=== PATIENT | female | born 1980 | race American Indian/Alaskan Native ===

== ENCOUNTER 2018-08-07 11:04 | Emergency (ER) | payer SELFPAY ==
[2018-08-07] MEDS ORDERED: NACL 0.9% 1000 ML 1,000 ML IV ONE (11:27)
[2018-08-07 11:53] LABS: Basophils % (Auto) 0.5 % (0.0-1.8); Eosinophils % (Auto) 0.8 % (0.0-4.3); Hematocrit 35.4 % (30.3-42.9); Hemoglobin 11.5 gm/dl (10.1-14.3); Lymphocytes # (Auto) 2.3 K/mm3 (1.2-5.4); Lymphocytes % (Auto) 45.8 % (13.4-35.0); Mean Corpuscular HGB Conc 33 % (30-34); Mean Corpuscular Volume 84 fl (79-97); Monocytes # (Auto) 0.4 K/mm3 (0.0-0.8); Monocytes % (Auto) 7.1 % (0.0-7.3); Platelet Count 291 K/mm3 (140-440); Red Blood Count 4.23 M/mm3 (3.65-5.03); Red Cell Distribution Width 15.3 % (13.2-15.2)
[2018-08-07 12:29] LABS: Alanine Aminotransferase 9 units/L (7-56); Albumin 4.5 g/dL (3.9-5); BUN/Creatinine Ratio 7; Blood Urea Nitrogen 5 mg/dL (7-17); Calcium 9.1 mg/dL (8.4-10.2); Hemolysis Index 9
[2018-08-07] MEDS ORDERED: NORCO 10/325 PO ONE (12:41)
[2018-08-07 13:14] LABS: Bilirubin,Urine NEG (Negative); Blood,Urine SM (Negative); Color,Urine Straw (Yellow); Mucus,Urine FEW /HPF; Protein,Urine <15 mg/dL mg/dL (Negative); RBC,Urine < 1.0 /HPF (0.0-6.0); Urobilinogen,Urine < 2.0 mg/dL (<2.0); WBC,Urine < 1.0 /HPF (0.0-6.0)
[2018-08-07 13:22] LABS: HCG Qualitative,Urine Negative (Negative)
--- NOTE | 2018-08-07 14:46 | Cat Scan Report ---
CT ABDOMEN PELVIS WITHOUT CONTRAST: HISTORY: Flank and abdominal pain. COMPARISON: none. TECHNIQUE: Helical CT in 1.25mm intervals without IV contrast. Sagittal and coronal reconstructions. FINDINGS: Lung bases: Normal. Liver: Normal. Biliary system: Normal. Pancreas: Normal. Spleen: Normal. Kidneys/ureters/bladder: Multiple tiny bilateral calyceal stones are identified. The kidneys are unremarkable otherwise. No evidence for cystic disease, obvious mass or hydronephrosis. The ureters and bladder are unremarkable. Adrenal glands: Normal. Aorta: Normal. Intestines: Within normal limits given no oral contrast was administered. Appendix: Not confidently identified, correlate with surgical history. Pelvic viscera: The uterus is mildly enlarged with suggestion of small fibroids. A 2 cm left ovarian cyst is identified. Ascites: None. Adenopathy: None. Musculoskeletal: Normal. IMPRESSION: Tiny bilateral renal calyceal stones. No hydronephrosis. 2 cm left ovarian cyst. Assumed appendectomy.
--- NOTE | 2018-08-07 14:55 | Emergency Department Report ---
ED Abdominal Pain HPI - General Chief Complaint: Abdominal Pain Stated Complaint: BACK PAIN Time Seen by Provider: 08/07/18 12:30 Source: patient Mode of arrival: Ambulatory Limitations: No Limitations - History of Present Illness Initial Comments: This is a 37-year-old female nontoxic, well nourished in appearance, no acute signs of distress presents to the ED with c/o of nausea and vomiting and left flank/abdominal pain 2 days. Patient describes vomiting as food content and yellow gastric acid. Patient describes left lower abdominal pain as cramping and aching with level of 3/10. Patient denies chest pain, short of breath, fever, chills, headache, stiff neck, numbness or tingling. Patient denies any diarrhea or constipation. Patient denies any recent travels. Patient denies any allergies. HX of appendectomy. MD Complaint: abdominal pain, flank pain -: days(s) (2) Location: LLQ, L flank Radiation: none Migration to: no migration Severity: mild Severity scale (0 -10): 3 Quality: cramping, aching Consistency: constant Improves With: nothing Worsens With: nothing Associated Symptoms: nausea, vomiting. denies: diarrhea, fever, chills, constipation, dysuria, hematemesis, hematochezia, melena, hematuria, anorexia, syncope - Related Data Previous Rx's Medication Instructions Recorded Last Taken Type Butalb/Acetamin/Caff 50-325-40 1 tab PO Q6HR PRN #30 tab 04/03/18 Unknown Rx [Fioricet] Carbamide Peroxide 6.5% [Ear Wax 1 - 2 drops OT BID #1 bottle 04/03/18 Unknown Rx Drops] Ondansetron [Zofran Odt] 4 mg PO TID #20 tab.rapdis 04/03/18 Unknown Rx Acetaminophen/Codeine [Tylenol 1 tab PO Q6H PRN #12 tab 08/07/18 Unknown Rx /Codeine # 3 tab] Ondansetron [Zofran Odt] 4 mg PO Q8HR PRN #20 tab.rapdis 08/07/18 Unknown Rx Allergies Allergy/AdvReac Type Severity Reaction Status Date / Time No Known Allergies Allergy Verified 08/07/18 11:06 ED Review of Systems ROS: Stated complaint: BACK PAIN Other details as noted in HPI Constitutional: denies: chills, fever Eyes: denies: eye pain, eye discharge, vision change ENT: denies: ear pain, throat pain Respiratory: denies: cough, shortness of breath, wheezing Cardiovascular: denies: chest pain, palpitations Endocrine: no symptoms reported Gastrointestinal: nausea, vomiting, other (pelvic/flank). denies: abdominal pain, diarrhea Genitourinary: denies: urgency, dysuria, discharge Musculoskeletal: denies: back pain, joint swelling, arthralgia Skin: denies: rash, lesions Neurological: denies: headache, weakness, paresthesias Psychiatric: denies: anxiety, depression Hematological/Lymphatic: denies: easy bleeding, easy bruising ED Past Medical Hx - Past Medical History Previous Medical History?: Yes - Surgical History Past Surgical History?: Yes Hx Appendectomy: Yes Additional Surgical History: tubal ligation & reversal - Social History Smoking Status: Never Smoker Substance Use Type: None - Medications Home Medications: Home Medications Medication Instructions Recorded Confirmed Last Taken Type Butalb/Acetamin/Caff 50-325-40 1 tab PO Q6HR PRN #30 tab 04/03/18 Unknown Rx [Fioricet] Carbamide Peroxide 6.5% [Ear Wax 1 - 2 drops OT BID #1 bottle 04/03/18 Unknown Rx Drops] Ondansetron [Zofran Odt] 4 mg PO TID #20 tab.rapdis 04/03/18 Unknown Rx Acetaminophen/Codeine [Tylenol 1 tab PO Q6H PRN #12 tab 08/07/18 Unknown Rx /Codeine # 3 tab] Ondansetron [Zofran Odt] 4 mg PO Q8HR PRN #20 tab.rapdis 08/07/18 Unknown Rx ED Physical Exam - General Limitations: No Limitations General appearance: alert, in no apparent distress - Head Head exam: Present: atraumatic, normocephalic - Eye Eye exam: Present: normal appearance - Neck Neck exam: Present: normal inspection, full ROM. Absent: tenderness, meningismus, lymphadenopathy - Respiratory Respiratory exam: Present: normal lung sounds bilaterally. Absent: respiratory distress, wheezes, rales, rhonchi, stridor, chest wall tenderness, accessory muscle use, decreased breath sounds, prolonged expiratory - Cardiovascular Cardiovascular Exam: Present: regular rate, normal rhythm, normal heart sounds. Absent: bradycardia, tachycardia, irregular rhythm, systolic murmur, diastolic murmur, rubs, gallop - GI/Abdominal GI/Abdominal exam: Present: soft, normal bowel sounds. Absent: distended, tenderness, guarding, rebound, rigid, diminished bowel sounds - Extremities Exam Extremities exam: Present: normal inspection, full ROM - Back Exam Back exam: Present: normal inspection, full ROM. Absent: tenderness, CVA tenderness (R), CVA tenderness (L), muscle spasm, paraspinal tenderness, vertebral tenderness, rash noted - Neurological Exam Neurological exam: Present: alert, oriented X3, normal gait - Psychiatric Psychiatric exam: Present: normal affect, normal mood - Skin Skin exam: Present: warm, dry, intact, normal color. Absent: rash ED Course Vital Signs 08/07/18 08/07/18 11:25 11:50 Temperature 97.9 F Pulse Rate 77 Respiratory 16 17 Rate Blood Pressure 117/74 O2 Sat by Pulse 100 Oximetry - Reevaluation(s) Reevaluation #1: 08/07/18 15:11 Patient is speaking in full sentences with no signs of distress noted. ED Medical Decision Making - Lab Data Result diagrams: 08/07/18 11:31 08/07/18 11:31 - Medical Decision Making This is a 37-year-old female that presents with left ovrain cyst and kidney s tone. Patient is stable and was examined by me. There is no abdominal tenderness. Labs obtained. UA obtained. CT of abdomen obtained and dictated by the radiologist. Patient is notified of the report with no questions noted by the patient. Vital signs are stable prior to discharge. Patient received medical treatment in the ED which patient stated symptoms has resovled and subsided. Was instructed note to operate any machinery due to possible drowsiness and stated someone will drive the patient home. A by mouth challenge has been obtained and patient tolerated well with no nausea vomiting. Patient was also instructed to Follow-up with a primary care doctor in 3-5 days or if symptoms worsen and continue return to emergency room as soon as possible. At time of discharge, the patient does not seem toxic or ill in appearance. No acute signs of distress noted. Patient agrees to discharge treatment plan of care. No further questions noted by the patient. Critical care attestation.: If time is entered above; I have spent that time in minutes in the direct care of this critically ill patient, excluding procedure time. ED Disposition Clinical Impression: Kidney stone, Left ovarian cyst Disposition: DC- TO HOME OR SELFCARE Is pt being admited?: No Does the pt Need Aspirin: No Condition: Stable Instructions: Acetaminophen/Codeine (By mouth), Abdominal Pain (ED) Additional Instructions: Follow-up with a primary care/CERAMIC WORKER doctor in 3-5 days or if symptoms worsen and continue return to emergency room as soon as possible. Do not operate any machinery while taking Tylenol with codeine as this may cause drowsiness. Prescriptions: Acetaminophen/Codeine [Tylenol /Codeine # 3 tab] 1 tab PO Q6H PRN #12 tab PRN Reason: Pain , Severe (7-10) Ondansetron [Zofran Odt] 4 mg PO Q8HR PRN #20 tab.rapdis PRN Reason: Nausea Referrals: [facility] MD RIKKI [Primary Care Provider] - 3-5 Days PRIMARY CAREMD [Referring] - 3-5 Days OBED PARDO MD [Staff Physician] - 3-5 Days SHANTE SIFUENTES MD [Staff Physician] - 3-5 Days [facility] [Provider Group] - 3-5 Days Forms: Work/School Release Form(ED)
[2018-08-07 15:36] VITALS: BP 122/74
== END 2018-08-07 15:34 | disposition home or self-care (01) ==
LOC: ED 11:04
DX: N20.0 Calculus of kidney (principal); N83.202 Unspecified ovarian cyst, left side; Z90.89 Acquired absence of other organs; Z98.51 Tubal ligation status
CPT/HCPCS: 36415; 74176; 80053; 81001; 81025; 83690; 85025

== ENCOUNTER 2018-08-27 05:41 | Emergency (ER) | payer SELFPAY ==
[2018-08-27 05:57] VITALS: BP 118/83
--- NOTE | 2018-08-27 06:33 | Emergency Department Report ---
[facility] Chief Complaint: Eye Problems Stated Complaint: R EYE PAIN/SWELLING/IRRITATION Time Seen by Provider: 08/27/18 06:27 Duration: 1 Day Side: Right Severity: mild Symptoms: Yes Eye Itching, Yes Eye Redness, Yes Mucous Drainage, No Eye Pain, No Purulent Drainage, No Blurred Vision, No Preceding URI, No H/O Allergic Rhinitis, No Contact Lens Use, No Trauma, No Fever, No Headache Other History: This is a 37-year-old -[place] female who presents with swelling in, itching, and pain to the right eye. Patient states symptoms started last night initially with itching. States she woke up this morning and there was mild swelling to the lower eyelid with mucus discharge. Patient states she wears glasses for reading. She denies visual changes, grinding sen sation, fever, cough, or recent trauma. ED Review of Systems ROS: Stated complaint: R EYE PAIN/SWELLING/IRRITATION Other details as noted in HPI Constitutional: denies: chills, fever Eyes: eye pain (right), eye discharge (right). denies: vision change ENT: denies: ear pain, throat pain Respiratory: denies: cough, shortness of breath, wheezing Cardiovascular: denies: chest pain, palpitations Gastrointestinal: denies: abdominal pain, nausea, diarrhea Skin: denies: rash, lesions Neurological: denies: headache, weakness, paresthesias Psychiatric: denies: anxiety, depression ED Past Medical Hx - Past Medical History Previous Medical History?: No - Surgical History Past Surgical History?: Yes Hx Appendectomy: Yes Additional Surgical History: tubal ligation & reversal - Social History Smoking Status: Never Smoker Substance Use Type: None - Medications Home Medications: Home Medications Medication Instructions Recorded Confirmed Last Taken Type Butalb/Acetamin/Caff 50-325-40 1 tab PO Q6HR PRN #30 tab 04/03/18 Unknown Rx [Fioricet] Carbamide Peroxide 6.5% [Ear Wax 1 - 2 drops OT BID #1 bottle 04/03/18 Unknown Rx Drops] Ondansetron [Zofran Odt] 4 mg PO TID #20 tab.rapdis 04/03/18 Unknown Rx Acetaminophen/Codeine [Tylenol 1 tab PO Q6H PRN #12 tab 08/07/18 Unknown Rx /Codeine # 3 tab] Ondansetron [Zofran Odt] 4 mg PO Q8HR PRN #20 tab.rapdis 08/07/18 Unknown Rx Erythromycin [Erythromycin Ophth 10 applic OP QID 7 Days #1 tube 08/27/18 Unknown Rx Oint] [facility] Exam - Exam General: Vital signs noted. No distress. Alert and acting appropriately. Eye Exam: Right Injection, Right Chemosis, Right Mucous Discharge, Both EOMI, Neither Abnormal Pupil, Neither Eye Foreign Body, Neither Lid Foreign Body, Neither Purulent Discharge, Neither Fluorescein Uptake, Neither Fluorescein Uptake (slit lamp), Neither Cell/Flare (slit lamp), Neither Corneal Edema, Neither Photophobia HEENT: No Nasal Congestion, No Pharyngeal Erythema Remainder of HEENT: Normal Lungs: Yes Clear Lung Sounds, Yes Good Air Exchange, No Wheezes, No Stridor, No Cough, No Nasal Flaring, No Retractions, No Use of Accessory Muscles ED Course Vital Signs 08/27/18 05:44 Temperature 98.3 F Pulse Rate 78 Respiratory 18 Rate Blood Pressure 118/83 O2 Sat by Pulse 100 Oximetry ED Medical Decision Making - Medical Decision Making This is a 37-year-old female that presents with right pink eye with mucous discharge and itching for 1 day. Patient is stable and was examined by me. Vitals normal. Physical assessment susceptible of conjunctivitis on the right. S tart erythromycin. Instructed to apply cool compress to improve swelling. Discussed plan with patient and she agreed with plan. Discharged home in stable condition. Follow up with PCP in 24-72 hours. Critical care attestation.: If time is entered above; I have spent that time in minutes in the direct care of this critically ill patient, excluding procedure time. ED Disposition Clinical Impression: Itch of right eye Conjunctivitis Qualifiers: Conjunctivitis type: acute Acute conjunctivitis type: bacterial Laterality: right Qualified Code(s): H10.31 - Unspecified acute conjunctivitis, right eye Disposition: DC-01 TO HOME OR SELFCARE Is pt being admited?: No Does the pt Need Aspirin: No Condition: Stable Instructions: Conjunctivitis (ED) Additional Instructions: Pinkeye is very contagious so please wash hands frequently. Don't share any towels or bedding to prevent spread of infection. Follow up with primary care doctor in 24-72 hours. Use cool compress to each eye to decrease swelling. Avoid rubbing or touching eyes, because rubbing eyes can cause worsening symptoms. Take medication as prescribed. Return to ER if swelling don't improve or difficulty breathing after 2 days of medication. Prescriptions: Erythromycin [Erythromycin Ophth Oint] 10 applic OP QID 7 Days #1 tube Referrals: HARRIS MAHER MD [Primary Care Provider] - 3-5 Days ARGELIA ALARCON MD [Staff Physician] - 3-5 Days [facility] [Provider Group] - 3-5 Days Forms: Work/School Release Form(ED), Accompanied Note Time of Disposition: 06:38
== END 2018-08-27 06:55 | disposition home or self-care (01) ==
LOC: ED 05:41
DX: H10.31 Unspecified acute conjunctivitis, right eye (principal)
CPT/HCPCS: 99282

== ENCOUNTER 2018-11-23 19:03 | Emergency (ER) | payer SELFPAY ==
[2018-11-23] MEDS ORDERED: BENADRYL IV ONE (19:07)
[2018-11-23] MEDS ORDERED: PEPCID IV ONE (19:07)
[2018-11-23] MEDS ORDERED: ADRENALINE P/F SUB-Q ONE (19:07)
[2018-11-23] MEDS ORDERED: NACL 0.9% 1000 ML 1,000 ML IV ONE (19:07)
[2018-11-23] MEDS ORDERED: SOLU-Medrol IV ONE (19:07)
--- NOTE | 2018-11-23 19:11 | Emergency Department Report ---
ED Allergic Reaction HPI - General Stated complaint: ALLERGIC REACTION Time Seen by Provider: 11/23/18 19:06 Source: patient Mode of arrival: Stretcher Limitations: No Limitations - History of Present Illness Initial Comments: Patient is a 38-year-old female that presents emergency room with complaints of allergic reaction. Patient states she is having facial swelling and hives on her face. Patient states she ate shrimp and didn't know she was allergic to. Patient is complaining of difficulty in breathing. Patient is complaining of a sensation in her throat was closing. Patient denies chest pain. Patient denies fever chills. Patient denies nausea vomiting. Patient states her symptoms are worsening. MD Complaint: allergic reaction, hives, facial swelling -: Sudden Exposure: food Symptoms: rash, itching, facial swelling, lip swelling, difficulty swallowing, difficulty breathing. denies: hoarseness, syncopy, dizziness, nausea, vomiting, abdominal pain Severity: severe Treatment Prior to Arrival: none Previous Allergy History: none - Related Data Previous Rx's Medication Instructions Recorded Last Taken Type Butalb/Acetamin/Caff 50-325-40 1 tab PO Q6HR PRN #30 tab 04/03/18 Unknown Rx [Fioricet] Carbamide Peroxide 6.5% [Ear Wax 1 - 2 drops OT BID #1 bottle 04/03/18 Unknown Rx Drops] Ondansetron [Zofran Odt] 4 mg PO TID #20 tab.rapdis 04/03/18 Unknown Rx Acetaminophen/Codeine [Tylenol 1 tab PO Q6H PRN #12 tab 08/07/18 Unknown Rx /Codeine # 3 tab] Ondansetron [Zofran Odt] 4 mg PO Q8HR PRN #20 tab.rapdis 08/07/18 Unknown Rx Erythromycin [Erythromycin Ophth 10 applic OP QID 7 Days #1 tube 08/27/18 Unkno wn Rx Oint] EPINEPHrine [Epipen 2-Bruno] 0.3 mg IJ ONCE PRN #1 auto.injct 11/23/18 Unknown Rx Famotidine [Pepcid] 40 mg PO QHS 6 Days #6 tablet 11/23/18 Unknown Rx methylPREDNISolone [Medrol 4MG 4 mg PO DAILY 6 Days #1 tab.ds.pk 11/23/18 Unknown Rx DOSEPAK (21 tabs)] Allergies Allergy/AdvReac Type Severity Reaction Status Date / Time No Known Allergies Allergy Verified 08/07/18 11:06 ED Review of Systems ROS: Stated complaint: ALLERGIC REACTION Other details as noted in HPI Constitutional: denies: chills, fever Eyes: denies: eye pain, eye discharge, vision change ENT: denies: ear pain, throat pain Respiratory: shortness of breath. denies: cough, wheezing Cardiovascular: denies: chest pain, palpitations Endocrine: no symptoms reported Gastrointestinal: denies: abdominal pain, nausea, diarrhea Genitourinary: denies: urgency, dysuria, discharge Musculoskeletal: denies: back pain, joint swelling, arthralgia Skin: rash, pruritus. denies: lesions Neurological: denies: headache, weakness, paresthesias Psychiatric: denies: anxiety, depression Hematological/Lymphatic: denies: easy bleeding, easy bruising ED Past Medical Hx - Past Medical History Previous Medical History?: No - Surgical History Past Surgical History?: Yes Hx Appendectomy: Yes Additional Surgical History: tubal ligation & reversal - Family History Family history: no significant - Social History Smoking Status: Never Smoker Substance Use Type: None - Medications Home Medications: Home Medications Medication Instructions Recorded Confirmed Last Taken Type Butalb/Acetamin/Caff 50-325-40 1 tab PO Q6HR PRN #30 tab 04/03/18 Unknown Rx [Fioricet] Carbamide Peroxide 6.5% [Ear Wax 1 - 2 drops OT BID #1 bottle 04/03/18 Unknown Rx Drops] Ondansetron [Zofran Odt] 4 mg PO TID #20 tab.rapdis 04/03/18 Unknown Rx Acetaminophen/Codeine [Tylenol 1 tab PO Q6H PRN #12 tab 08/07/18 Unknown Rx /Codeine # 3 tab] Ondansetron [Zofran Odt] 4 mg PO Q8HR PRN #20 tab.rapdis 08/07/18 Unknown Rx Erythromycin [Erythromycin Ophth 10 applic OP QID 7 Days #1 tube 08/27/18 Unknown Rx Oint] EPINEPHrine [Epipen 2-Bruno] 0.3 mg IJ ONCE PRN #1 auto.injct 11/23/18 Unknown Rx Famotidine [Pepcid] 40 mg PO QHS 6 Days #6 tablet 11/23/18 Unknown Rx methylPREDNISolone [Medrol 4MG 4 mg PO DAILY 6 Days #1 tab.ds.pk 11/23/18 Unknown Rx DOSEPAK (21 tabs)] ED Physical Exam - General Limitations: No Limitations General appearance: alert, anxious, in distress - Head Head exam: Present: atraumatic, normocephalic - Eye Eye exam: Present: normal appearance, PERRL Pupils: Present: normal accommodation - ENT ENT exam: Present: mucous membranes moist, other (facial swelling and lip swelling. Hives on face noted) - Neck Neck exam: Present: normal inspection - Respiratory Respiratory exam: Present: normal lung sounds bilaterally, respiratory distress. Absent: wheezes, rales, rhonchi, stridor - Cardiovascular Cardiovascular Exam: Present: regular rate, normal rhythm. Absent: systolic murmur, diastolic murmur, rubs, gallop - GI/Abdominal GI/Abdominal exam: Present: soft, normal bowel sounds. Absent: distended, tenderness, guarding - Rectal Rectal exam: Present: deferred - Extremities Exam Extremities exam: Present: normal inspection - Back Exam Back exam: Present: normal inspection - Neurological Exam Neurological exam: Present: alert, oriented X3 - Psychiatric Psychiatric exam: Present: normal affect, normal mood - Skin Skin exam: Present: warm, dry, intact, rash, urticaria ED Course Vital Signs 11/23/18 11/23/18 11/23/18 19:20 20:01 21:00 Temperature 98.3 F Pulse Rate 89 80 76 Respiratory 16 13 9 L Rate Blood Pressure 167/108 131/90 127/81 Blood Pressure 167/108 [Left] O2 Sat by Pulse 100 100 98 Oximetry 11/23/18 22:23 Temperature 98.1 F Pulse Rate 90 Respiratory 16 Rate Blood Pressure Blood Pressure 116/71 [Left] O2 Sat by Pulse 99 Oximetry - Reevaluation(s) Reevaluation #1: Evaluation done. Patient complaint shortness of breath and difficulty breathing. Patient had facial swelling and hives on her face. Patient will be given multiple medications. 11/23/18 19:07 Reevaluation #2: Patient states she is feeling better. 11/23/18 19:15 Reevaluation #3: Patient states she is feeling back to normal. Patient's face is normal in all swelling and hives have resolved. 11/23/18 20:50 Reevaluation #4: Patient is comfortable. Patient denies shortness of breath. Patient denies chest pain. Patient denies difficulty breathing. Patient denies rash and itching. Patient is stable for discharge. I discussed all results with patient. Patient will be discharged home. Patient agrees with plan of care. I discussed discharge and follow-up instructions with the patient. Patient voiced understanding of instructions 11/23/18 21:53 ED Medical Decision Making - Lab Data Result diagrams: 11/23/18 19:18 11/23/18 19:18 - Radiology Data Radiology results: report reviewed interpreted by me: Negative chest x-ray - Medical Decision Making She is a 38-year-old female with a anaphylactic reaction and allergic reaction. Patient given epinephrine, Medrol, Pepcid and Benadryl. Patient responded well to therapy. Patient monitored for several hours and patient was discharged home. Patient improved immediately after this treatment. Patient's labs and chest x-ray unremarkable. Patient discharged home. - Differential Diagnosis anaphylaxis. Allergic reaction. Rash. . Critical Care Time: Yes Critical care attestation.: If time is entered above; I have spent that time in minutes in the direct care of this critically ill patient, excluding procedure time. Critical Care Time: 35 minutes ED Disposition Clinical Impression: SOB (shortness of breath), Hives Anaphylactic reaction Qualifiers: Encounter type: initial encounter Qualified Code(s): T78.2XXA - Anaphylactic shock, unspecified, initial encounter Disposition: TO HOME OR SELFCARE Is pt being admited?: No Does the pt Need Aspirin: No Condition: Stable Instructions: Food Allergy (ED), Anaphylaxis (ED), Allergies (ED) Additional Instructions: Patient to follow up with primary care in 2-3 days. Patient to follow up with yield analyst in 2-3 days. Patient to return to ER if condition worsens. Patient take meds as directed. Patient to avoid shrimp. Patient to keep a food log. Patient to return to ER if condition worsens. Patient to take Tylenol or ibuprofen when necessary for pain Prescriptions: Famotidine [Pepcid] 40 mg PO QHS 6 Days #6 tablet EPINEPHrine [Epipen 2-Bruno] 0.3 mg IJ ONCE PRN #1 auto.injct PRN Reason: Anaphylaxis methylPREDNISolone [Medrol 4MG DOSEPAK (21 tabs)] 4 mg PO DAILY 6 Days #1 tab.ds.pk Referrals: PRIMARY CARE, [Primary Care Provider] - 2-3 Days Forms: Work/School Release Form(ED) Time of Disposition: 21:57
[2018-11-23] MEDS ORDERED: ZOFRAN ONE (19:16)
[2018-11-23 19:29] LABS: Basophils % (Auto) 0.2 % (0.0-1.8); Eosinophils % (Auto) 0.5 % (0.0-4.3); Hematocrit 32.6 % (30.3-42.9); Hemoglobin 10.8 gm/dl (10.1-14.3); Lymphocytes # (Auto) 3.1 K/mm3 (1.2-5.4); Lymphocytes % (Auto) 47.6 % (13.4-35.0); Mean Corpuscular HGB Conc 33 % (30-34); Mean Corpuscular Volume 83 fl (79-97); Monocytes # (Auto) 0.7 K/mm3 (0.0-0.8); Monocytes % (Auto) 10.2 % (0.0-7.3); Platelet Count 275 K/mm3 (140-440)
[2018-11-23 20:04] LABS: Alanine Aminotransferase 8 units/L (7-56); Albumin 4.3 g/dL (3.9-5); BUN/Creatinine Ratio 15; Blood Urea Nitrogen 12 mg/dL (7-17); Calcium 8.9 mg/dL (8.4-10.2); Hemolysis Index 7
--- NOTE | 2018-11-23 20:29 | XRay Report ---
CHEST 1 VIEW, 11/23/2018 7:56 PM INDICATION: Allergic reaction COMPARISON: None FINDINGS: Support devices: None Heart: The cardiac silhouette is normal in size. Lungs/pleura: There is no focal airspace disease or significant pleural effusion. Additional findings: No additional acute findings. IMPRESSION: 1. No evidence of acute cardiopulmonary process. Signer Name: Linda Jeffries MD Signed: 11/23/2018 8:24 PM Workstation Name: [id number]
[2018-11-23 22:24] VITALS: BP 116/71
== END 2018-11-23 22:23 | disposition home or self-care (01) ==
LOC: ED 19:03
DX: T78.02XA Anaphylactic reaction due to shellfish (crustaceans), initial encounter (principal); L50.9 Urticaria, unspecified; R06.02 Shortness of breath; Z90.49 Acquired absence of other specified parts of digestive tract; Z98.51 Tubal ligation status; Z79.899 Other long term (current) drug therapy
CPT/HCPCS: 36415; 71045; 80053; 84703; 85025; 96372; 96374; 96375; 99291; J0171; J1200; J2405; J2930; J7030; 96361

== ENCOUNTER 2019-03-06 06:29 | Emergency (ER) | payer SELFPAY ==
--- NOTE | 2019-03-06 07:31 | Emergency Department Report ---
ED General Adult HPI - General Chief complaint: Extremity Injury, Lower Stated complaint: L LEG PAIN Time Seen by Provider: 03/06/19 07:19 Source: patient Mode of arrival: Ambulatory Limitations: No Limitations - History of Present Illness Initial comments: 38-year-old -Maldivian female patient complains of left heel pain greater than 6 months. She denies any injury to her foot. She states she was seen her primary care doctor for this initially and has had one steroid injection in the foot that helped with the pain for about one month. Patient states she is unsure of what was diagnosed with. She admits to standing for more than 8 hours a day at work. She reports the pain seems to be at its worse in the morning when she first wakes up and begins to ambulate. Pain also worsens after sitting for extended periods of time. She denies any fever, swelling, history of cancer. Aleve is no longer helping with the pain. -: Gradual, month(s) Location: left, lower extremity Radiation: non-radiation Severity scale (0 -10): 10 Quality: stabbing Consistency: intermittent Improves with: immobilization Worsens with: movement Associated Symptoms: denies other symptoms Treatments Prior to Arrival: NSAID - Related Data Previous Rx's Medication Instructions Recorded Last Taken Type Butalb/Acetamin/Caff 50-325-40 1 tab PO Q6HR PRN #30 tab 04/03/18 Unknown Rx [Fioricet] Carbamide Peroxide 6.5% [Ear Wax 1 - 2 drops OT BID #1 bottle 04/03/18 Unknown Rx Drops] Ondansetron [Zofran Odt] 4 mg PO TID #20 tab.rapdis 04/03/18 Unknown Rx Acetaminophen/Codeine [Tylenol 1 tab PO Q6H PRN #12 tab 08/07/18 Unknown Rx /Codeine # 3 tab] Ondansetron [Zofran Odt] 4 mg PO Q8HR PRN #20 tab.rapdis 08/07/18 Unknown Rx Erythromycin [Erythromycin Ophth 10 applic OP QID 7 Days #1 tube 08/27/18 Unknown Rx Oint] EPINEPHrine [Epipen 2-Bruno] 0.3 mg IJ ONCE PRN #1 auto.injct 11/23/18 Unknown Rx Famotidine [Pepcid] 40 mg PO QHS 6 Days #6 tablet 11/23/18 Unknown Rx methylPREDNISolone [Medrol 4MG 4 mg PO DAILY 6 Days #1 tab.ds.pk 11/23/18 Unknown Rx DOSEPAK (21 tabs)] Diclofenac 1% [Diclofenac 1% 100 gm TP QID 7 Days #100 03/06/19 Unknown Rx topical gel] gel..gram. Diclofenac Sodium 50 mg PO TID PRN #21 tablet.dr 03/06/19 Unknown Rx Prednisone [predniSONE 10 mg 10 mg PO .TAPER #1 tab.ds.pk 03/06/19 Unknown Rx (6-Day Pack, 21 Tabs)] Allergies Allergy/AdvReac Type Severity Reaction Status Date / Time No Known Allergies Allergy Verified 08/07/18 11:06 ED Review of Systems ROS: Stated complaint: L LEG PAIN Other details as noted in HPI Comment: All other systems reviewed and negative Musculoskeletal: as per HPI Skin: denies: change in color ED Past Medical Hx - Past Medical History Previous Medical History?: Yes - Surgical History Past Surgical History?: Yes Hx Appendectomy: Yes Additional Surgical History: tubal ligation & reversal - Social History Smoking Status: Never Smoker Substance Use Type: Alcohol - Medications Home Medications: Home Medications Medication Instructions Recorded Confirmed Last Taken Type Butalb/Acetamin/Caff 50-325-40 1 tab PO Q6HR PRN #30 tab 04/03/18 Unknown Rx [Fioricet] Carbamide Peroxide 6.5% [Ear Wax 1 - 2 drops OT BID #1 bottle 04/03/18 Unknown Rx Drops] Ondansetron [Zofran Odt] 4 mg PO TID #20 tab.rapdis 04/03/18 Unknown Rx Acetaminophen/Codeine [Tylenol 1 tab PO Q6H PRN #12 tab 08/07/18 Unknown Rx /Codeine # 3 tab] Ondansetron [Zofran Odt] 4 mg PO Q8HR PRN #20 tab.rapdis 08/07/18 Unknown Rx Erythromycin [Erythromycin Ophth 10 applic OP QID 7 Days #1 tube 08/27/18 Unknown Rx Oint] EPINEPHrine [Epipen 2-Bruno] 0.3 mg IJ ONCE PRN #1 auto.injct 11/23/18 Unknown Rx Famotidine [Pepcid] 40 mg PO QHS 6 Days #6 tablet 11/23/18 Unknown Rx methylPREDNISolone [Medrol 4MG 4 mg PO DAILY 6 Days #1 tab.ds.pk 11/23/18 Unknown Rx DOSEPAK (21 tabs)] Diclofenac 1% [Diclofenac 1% 100 gm TP QID 7 Days #100 03/06/19 Unknown Rx topical gel] gel..gram. Diclofenac Sodium 50 mg PO TID PRN #21 tablet. 03/06/19 Unknown Rx Prednisone [predniSONE 10 mg 10 mg PO .TAPER #1 tab.ds.pk 03/06/19 Unknown Rx (6-Day Pack, 21 Tabs)] ED Physical Exam - General Limitations: No Limitations General appearance: alert, in no apparent distress - Head Head exam: Present: atraumatic, normocephalic - Eye Eye exam: Absent: scleral icterus - Respiratory Respiratory exam: Absent: respiratory distress - Cardiovascular Cardiovascular Exam: Present: regular rate - Extremities Exam Extremities exam: Absent: pedal edema, joint swelling, calf tenderness - Expanded Lower Extremity Exam Left Ankle exam: Present: normal inspection Foot/Toe exam: Present: full ROM, tenderness, calcaneal tenderness. Absent: swelling, ecchymosis, deformity (also noted over plantar fascia ), erythema, tenderness at base of 5th metatarsal ED Medical Decision Making - Medical Decision Making Patient's symptoms appear to be consistent with plantar fasciitis. Discuss need for night splint, icing, and roller ball for foot also discussed need for follow-up with podiatry. Strict return precautions were discussed in detail with patient states understanding. Critical care attestation.: If time is entered above; I have spent that time in minutes in the direct care of this critically ill patient, excluding procedure time. ED Disposition Clinical Impression: Plantar fasciitis of left foot Disposition: DC- TO HOME OR SELFCARE Is pt being admited?: No Condition: Stable Instructions: Plantar Fasciitis (ED) Prescriptions: Diclofenac 1% [Diclofenac 1% topical gel] 100 gm TP QID 7 Days #100 gel..gram. Diclofenac Sodium 50 mg PO TID PRN #21 tablet.dr LOPEZ Reason: Pain , Severe (7-10) Prednisone [predniSONE 10 mg (6-Day Pack, 21 Tabs)] 10 mg PO .TAPER #1 tab.ds.pk Referrals: PRIMARY CARE, [Primary Care Provider] - 3-5 Days KALIN CORNELL DPM [Staff Physician] - 3-5 Days
== END 2019-03-06 08:12 | disposition home or self-care (01) ==
LOC: ED 06:29
DX: M72.2 Plantar fascial fibromatosis (principal); Z90.89 Acquired absence of other organs; Z98.51 Tubal ligation status; Z79.899 Other long term (current) drug therapy

== ENCOUNTER 2020-02-25 10:37 | Emergency (ER) | payer SELFPAY ==
[2020-02-25 10:45] VITALS: BP 144/98
[2020-02-25 15:48] LABS: Bilirubin,Urine NEG (Negative); Blood,Urine NEG (Negative); Color,Urine Yellow (Yellow); Mucus,Urine FEW /HPF; Protein,Urine <15 mg/dL mg/dL (Negative); Urobilinogen,Urine < 2.0 mg/dL (<2.0)
[2020-02-25 15:51] LABS: HCG Qualitative,Urine Negative (Negative)
--- NOTE | 2020-02-25 16:27 | Emergency Department Report ---
ED Back Pain/Injury HPI - General Chief Complaint: Back Pain/Injury Stated Complaint: LT BREAST/BACK PAIN Time Seen by Provider: 02/25/20 14:32 Source: patient Limitations: No Limitations - History of Present Illness Initial Comments: This very pleasant 39-year-old female presents the emergency department with a chief complaint of right-sided lower back pain that radiates into her foot. She denies any injuries. She reports the pain is aggravated with extension and there are no alleviating factors other than note mobility and flexion. She denies any saddle anesthesia, urinary or bowel incontinence, fever, chills, night sweats, headache, dizziness, blurry vision, nausea, and, diarrhea, chest pain, shortness of breath or any other associated symptoms. She denies any kn own past medical history, current medication use or known allergies to medications. She also reports she has been having some pain to the lateral side of her left breast. She denies any change in the color of the skin or lumps or bumps. She states she has had breast pain in the past but usually is around her cycle which is atypical for her not being on her cycle now. She denies any . She denies any associated fever, chills, night sweats, headache, dizziness, blurry vision, nausea, vomiting, diarrhea, chest pain, shortness of breath or any other associated symptoms. - Related Data Previous Rx's Medication Instructions Recorded Last Taken Type Butalb/Acetamin/Caff 50-325-40 1 tab PO Q6HR PRN #30 tab 04/03/18 Unknown Rx [Fioricet] Carbamide Peroxide 6.5% [Ear Wax 1 - 2 drops OT BID #1 bottle 04/03/18 Unknown Rx Drops] Ondansetron [Zofran Odt] 4 mg PO TID #20 tab.rapdis 04/03/18 Unknown Rx Acetaminophen/Codeine [Tylenol 1 tab PO Q6H PRN #12 tab 08/07/18 Unknown Rx /Codeine # 3 tab] Ondansetron [Zofran Odt] 4 mg PO Q8HR PRN #20 tab.rapdis 08/07/18 Unknown Rx Erythromycin [Erythromycin Ophth 10 applic OP QID 7 Days #1 tube 08/27/18 Unknown Rx Oint] EPINEPHrine [Epipen 2-Bruno] 0.3 mg IJ ONCE PRN #1 auto.injct 11/23/18 Unknown Rx Famotidine [Pepcid] 40 mg PO QHS 6 Days #6 tablet 11/23/18 Unknown Rx methylPREDNISolone [Medrol 4MG 4 mg PO DAILY 6 Days #1 tab.ds.pk 11/23/18 Unknown Rx DOSEPAK (21 tabs)] Diclofenac 1% [Diclofenac 1% 100 gm TP QID 7 Days #100 03/06/19 Unknown Rx topical gel] gel..gram. Diclofenac Sodium 50 mg PO TID PRN #21 tablet.dr 03/06/19 Unknown Rx Prednisone [predniSONE 10 mg 10 mg PO .TAPER #1 tab.ds.pk 03/06/19 Unknown Rx (6-Day Pack, 21 Tabs)] Naproxen 500 mg PO BID #20 tablet 02/25/20 Unknown Rx methOCARBAMOL [Robaxin TAB] 500 mg PO Q6H #30 tablet 02/25/20 Unknown Rx methylPREDNISolone [Medrol 4MG 4 mg PO ONCE #1 tab.ds.pk 02/25/20 Unknown Rx DOSEPAK (21 tabs)] Allergies Allergy/AdvReac Type Severity Reaction Status Date / Time No Known Allergies Allergy Verified 08/07/18 11:06 ED Review of Systems ROS: Stated complaint: LT BREAST/BACK PAIN Other details as noted in HPI Comment: All other systems reviewed and negative Constitutional: denies: chills, fever Eyes: denies: eye pain, eye discharge, vision change ENT: denies: ear pain, throat pain Respiratory: denies: cough, shortness of breath, wheezing Cardiovascular: denies: chest pain, palpitations Endocrine: no symptoms reported Gastrointestinal: denies: abdominal pain, nausea, diarrhea Genitourinary: denies: urgency, dysuria, discharge Musculoskeletal: as per HPI, back pain. denies: joint swelling, arthralgia Skin: denies: rash, lesions Neurological: denies: headache, weakness, paresthesias Psychiatric: denies: anxiety, depression Hematological/Lymphatic: denies: easy bleeding, easy bruising ED Past Medical Hx - Past Medical History Previous Medical History?: No - Surgical History Hx Appendectomy: Yes Additional Surgical History: tubal ligation & reversal - Social History Smoking Status: Never Smoker Substance Use Type: Alcohol - Medications Home Medications: Home Medications Medication Instructions Recorded Confirmed Last Taken Type Butalb/Acetamin/Caff 50-325-40 1 tab PO Q6HR PRN #30 tab 04/03/18 Unknown Rx [Fioricet] Carbamide Peroxide 6.5% [Ear Wax 1 - 2 drops OT BID #1 bottle 04/03/18 Unknown Rx Drops] Ondansetron [Zofran Odt] 4 mg PO TID #20 tab.rapdis 04/03/18 Unknown Rx Acetaminophen/Codeine [Tylenol 1 tab PO Q6H PRN #12 tab 08/07/18 Unknown Rx /Codeine # 3 tab] Ondansetron [Zofran Odt] 4 mg PO Q8HR PRN #20 tab.rapdis 08/07/18 Unknown Rx Erythromycin [Erythromycin Ophth 10 applic OP QID 7 Days #1 tube 08/27/18 Unknown Rx Oint] EPINEPHrine [Epipen 2-Bruno] 0.3 mg IJ ONCE PRN #1 auto.injct 11/23/18 Unknown Rx Famotidine [Pepcid] 40 mg PO QHS 6 Days #6 tablet 11/23/18 Unknown Rx methylPREDNISolone [Medrol 4MG 4 mg PO DAILY 6 Days #1 tab.ds.pk 11/23/18 Unknown Rx DOSEPAK (21 tabs)] Diclofenac 1% [Diclofenac 1% 100 gm TP QID 7 Days #100 03/06/19 Unknown Rx topical gel] gel..gram. Diclofenac Sodium 50 mg PO TID PRN #21 tablet.dr 03/06/19 Unknown Rx Prednisone [predniSONE 10 mg 10 mg PO .TAPER #1 tab.ds.pk 03/06/19 Unknown Rx (6-Day Pack, 21 Tabs)] Naproxen 500 mg PO BID #20 tablet 02/25/20 Unknown Rx methOCARBAMOL [Robaxin TAB] 500 mg PO Q6H #30 tablet 02/25/20 Unknown Rx methylPREDNISolone [Medrol 4MG 4 mg PO ONCE #1 tab.ds.pk 02/25/20 Unknown Rx DOSEPAK (21 tabs)] ED Physical Exam - General Limitations: No Limitations General appearance: alert, in no apparent distress - Head Head exam: Present: atraumatic, normocephalic - Eye Eye exam: Present: normal appearance, PERRL, EOMI Pupils: Present: normal accommodation - ENT ENT exam: Present: normal exam, normal orophraynx, mucous membranes moist - Neck Neck exam: Present: normal inspection, full ROM. Absent: tenderness, meningi smus - Respiratory Respiratory exam: Present: normal lung sounds bilaterally. Absent: respiratory distress, wheezes, rales, rhonchi, stridor - Cardiovascular Cardiovascular Exam: Present: regular rate, normal rhythm, normal heart sounds. Absent: systolic murmur, diastolic murmur, rubs, gallop - GI/Abdominal GI/Abdominal exam: Present: soft, normal bowel sounds. Absent: distended, tenderness, guarding, rebound, rigid - Extremities Exam Extremities exam: Present: normal inspection, full ROM, normal capillary refill. Absent: tenderness, calf tenderness - Back Exam Back exam: Present: normal inspection, full ROM, tenderness, muscle spasm, paraspinal tenderness (Paraspinal tenderness to the lumbar area on the right over the upper gluteal muscles. No midline tenderness to the cervical, thoracic or lumbar spine. Negative straight leg raise. al). Absent: CVA tenderness (R) - Neurological Exam Neurological exam: Present: alert, oriented X3, CN II-XII intact, normal gait, reflexes normal (Normal deep tendon reflexes the bilateral patella and Achilles 2+ bilaterally.). Absent: motor sensory deficit - Psychiatric Psychiatric exam: Present: normal affect, normal mood - Skin Skin exam: Present: warm, dry, intact, normal color. Absent: rash ED Course Vital Signs 02/25/20 10:42 Temperature 98.7 F Pulse Rate 91 H Respiratory 16 Rate Blood Pressure 144/98 O2 Sat by Pulse 100 Oximetry ED Medical Decision Making - Lab Data Lab Results 02/25/20 Range/Units 15:02 Urine Color Yellow (Yellow) Urine Turbidity Clear (Clear) Urine pH 7.0 (5.0-7.0) Ur Specific [place] 1.021 (1.003-1.030) Urine Protein <15 mg/dl (Negative) mg/dL Urine Glucose (UA) Neg (Negative) mg/dL Urine Ketones Neg (Negative) mg/dL Urine Blood Neg (Negative) Urine Nitrite Neg (Negative) Urine Bilirubin Neg (Negative) Urine Urobilinogen < 2.0 (<2.0) mg/dL Ur Leukocyte Esterase Neg (Negative) Urine WBC (Auto) 1.0 (0.0-6.0) /HPF Urine RBC (Auto) 4.0 (0.0-6.0) /HPF U Epithel Cells (Auto) 5.0 (0-13.0) /HPF Urine Mucus Few /HPF Urine HCG, Qual Negative (Negative) - Medical Decision Making Patient nontoxic in no acute distress. Vital signs are stable. The patient had a normal urine and a negative test making pyelonephritis, nephrolithiasis or ectopic unlikely. She had no saddle anesthesia, urinary or bowel incontinence, urinary retention, leg weakness or any other associated symptoms to suggest cauda equina syndrome, conus medullaris syndrome, or any other associated symptoms. She had no fever, no IV drug use history or any other associated symptoms making an epidural abscess less likely. She had no injury making epidural hematoma, fracture unlikely. I suspect the patient may have a herniated disc versus a peripheral impingement on her sciatic nerve and recommended steroids, muscle relaxers and outpatient follow-up with her primary care doctor and animal care specialist. She was agreeable to this plan. Verbalized understand the diagnosis, treatment and follow-up instructions all of her questions were answered. As far as her breast exam she had some tenderness to the lateral breast. There is no dimpling, no changes in the color of the skin, no masses lumps or bumps. She has a mammogram scheduled next month which I recommend she keep that appointment and if any other changing worsening symptoms were to arise she return to the emergency department or follow-up with her primary doctor for evaluation. - Differential Diagnosis Strain, sprain, fracture, herniated disc Critical care attestation.: If time is entered above; I have spent that time in minutes in the direct care of this critically ill patient, excluding procedure time. ED Disposition Clinical Impression: Lumbosacral radiculopathy Disposition: - TO HOME OR SELFCARE Is pt being admited?: No Condition: Stable Instructions: Lumbar Radiculopathy (ED) Prescriptions: methylPREDNISolone [Medrol 4MG DOSEPAK (21 tabs)] 4 mg PO ONCE #1 tab.ds.pk Naproxen 500 mg PO BID #20 tablet methOCARBAMOL [Robaxin TAB] 500 mg PO Q6H #30 tablet Referrals: PRIMARY CAREMD [Primary Care Provider] - 3-5 Days NADIA GRACE II, MD [Staff Physician] - 3-5 Days Time of Disposition: 16:29
== END 2020-02-25 16:49 | disposition home or self-care (01) ==
LOC: ED 10:37
DX: M54.17 Radiculopathy, lumbosacral region (principal); Z98.51 Tubal ligation status; Z79.899 Other long term (current) drug therapy
CPT/HCPCS: 81001; 81025; 99283

== ENCOUNTER 2020-04-08 08:28 | Emergency (ER) | payer SELFPAY ==
[2020-04-08 08:37] VITALS: BP 132/85
[2020-04-08 09:40] LABS: Basophils % (Auto) 0.3 % (0.0-1.8); Eosinophils # (Auto) 0.1 K/mm3 (0.0-0.4); Eosinophils % (Auto) 1.4 % (0.0-4.3); Hematocrit 34.6 % (30.3-42.9); Hemoglobin 11.4 gm/dl (10.1-14.3); Lymphocytes # (Auto) 1.7 K/mm3 (1.2-5.4); Lymphocytes % (Auto) 39.8 % (13.4-35.0); Mean Corpuscular HGB Conc 33 % (30-34); Mean Corpuscular Volume 85 fl (79-97); Monocytes # (Auto) 0.3 K/mm3 (0.0-0.8); Monocytes % (Auto) 6.6 % (0.0-7.3); Platelet Count 280 K/mm3 (140-440); Red Blood Count 4.07 M/mm3 (3.65-5.03); Red Cell Distribution Width 15.3 % (13.2-15.2)
[2020-04-08 09:59] LABS: Blood Urea Nitrogen 9 mg/dL (7-17)
[2020-04-08 10:00] LABS: Alanine Aminotransferase 7 units/L (7-56); Albumin 4.3 g/dL (3.9-5); BUN/Creatinine Ratio 11; Calcium 9.3 mg/dL (8.4-10.2); Hemolysis Index 6
--- NOTE | 2020-04-08 10:02 | Emergency Department Report ---
ED Back Pain/Injury HPI - General Chief Complaint: Back Pain/Injury Stated Complaint: BACK PAIN Time Seen by Provider: 04/08/20 09:30 Source: patient Limitations: No Limitations - History of Present Illness Initial Comments: 39-year-old female past medical history of migraines presents to the ER today complaint of lower back pain. Patient states that she has been having the back pain off and on since the beginning of March. She states that she thought the pain was related to her menstrual cycle about the start. She states her menstrual cycle ended on the eighth, and she still continues to have the pain. She states that in the past 3 days lower back pain has been constant. She also still continues to have intermittent lower abdominal cramping and she has noticed that she has developed some discomfort with urination, and mild bleeding on the tissue when she wipes after urinating. She also reports a white vaginal discharge. She denies any fever, chills, nausea, vomiting or bowel changes. She is status post tubal ligation with reversal, and status post appendectomy. MD Complaint: back pain -: days(s) (Since the of March) Similar Symptoms Previously: No - Related Data Previous Rx's Medication Instructions Recorded Last Taken Type Fluconazole (Nf) [Diflucan TAB] 150 mg PO ONCE #1 tablet 04/08/20 Unknown Rx Ibuprofen [Motrin] 800 mg PO Q8HR PRN #30 tablet 04/08/20 Unknown Rx Allergies Allergy/AdvReac Type Severity Reaction Status Date / Time No Known Allergies Allergy Verified 08/07/18 11:06 ED Review of Systems ROS: Stated complaint: BACK PAIN Other details as noted in HPI Comment: All other systems reviewed and negative Constitutional: denies: chills, fever Respiratory: denies: cough, shortness of breath, wheezing Cardiovascular: denies: chest pain, palpitations Gastrointestinal: abdominal pain. denies: nausea, vomiting Genitourinary: dysuria, frequency, hematuria Musculoskeletal: back pain Neurological: denies: headache, weakness, paresthesias Psychiatric: denies: anxiety, depression Hematological/Lymphatic: denies: easy bleeding, easy bruising ED Past Medical Hx - Past Medical History Previous Medical History?: No - Surgical History Hx Appendectomy: Yes Additional Surgical History: tubal ligation & reversal - Social History Smoking Status: Never Smoker Substance Use Type: None - Medications Home Medications: Home Medications Medication Instructions Recorded Confirmed Last Taken Type Fluconazole (Nf) [Diflucan TAB] 150 mg PO ONCE #1 tablet 04/08/20 Unknown Rx Ibuprofen [Motrin] 800 mg PO Q8HR PRN #30 tablet 04/08/20 Unknown Rx ED Physical Exam - General Limitations: No Limitations - Head Head exam: Present: atraumatic, normocephalic, normal inspection - Eye Eye exam: Present: normal appearance, PERRL, EOMI - Respiratory Respiratory exam: Absent: respiratory distress - Cardiovascular Cardiovascular Exam: Present: regular rate - GI/Abdominal GI/Abdominal exam: Present: soft, tenderness (Mild tenderness palpation left lower quadrant). Absent: distended, guarding, rebound - Speculum exam: Present: vaginal discharge, other (mild bleeding from cervix after swabbing ). Absent: cervical discharge, foreign body Bi-manual exam: Present: adnexal tenderness (left, mild ). Absent: cervical motion tendernes, adnexal mass - Back Exam Back exam: Present: normal inspection, full ROM - Neurological Exam Neurological exam: Present: alert, oriented X3, CN II-XII intact, normal gait - Psychiatric Psychiatric exam: Present: normal affect, normal mood - Skin Skin exam: Present: intact ED Course Vital Signs 04/08/20 08:32 Temperature 98.5 F Pulse Rate 104 H Respiratory 18 Rate Blood Pressure 132/85 O2 Sat by Pulse 99 Oximetry ED Medical Decision Making - Lab Data Result diagrams: 04/08/20 09:16 04/08/20 09:16 - Medical Decision Making 1152 --patient presented to the ER today complaint of low back pain, pelvic/lower abdominal pain dysuria, and bleeding when she would wipe after urination. Urinalysis does not suggest acute UTI at this time. Wet prep shows positive for yeast but otherwise unremarkable. GC pending. CBC and CMP all normal. hCG negative. Pelvic exam showed mild left adnexal tenderness but otherwise unremarkable. She has a non surgical abdominal exam. Patient is currently resting comfortably, she does not appear to be in any di stress. She is awake alert oriented and neurologically intact. Her vital signs stable. Patient history, physical exam finding, and diagnostic testing at this time does not suggest ovarian torsion, tubo-ovarian abscess, kidney stone, or any other significant intra-abdominal/intrapelvic pathology requiring further ER testing, emergent consultation or admission at this time. Patient does admit she was diagnosed with uterine fibroids several years ago, explained to patient that this could account mild spotting she had prior to the onset of her period and after her period and also the pelvic/lower abdominal pain. She will be treated for yeast infection but other than that I recommended to her that she follows up with her HYPNOTHERAPIST for a pelvic ultrasound. Patient expressed understanding of instructions and agree with plan. Patient stable at time of discharge. Critical care attestation.: If time is entered above; I have spent that time in minutes in the direct care of this critically ill patient, excluding procedure time. ED Disposition Clinical Impression: Yeast vaginitis, Pelvic pain, Low back pain Disposition: TO HOME OR SELFCARE Is pt being admited?: No Does the pt Need Aspirin: No Condition: Stable Instructions: Pelvic Pain, Female, [id number], Acute Back Pain, Adult, Vagi nitis Additional Instructions: I recommend that you take the medication prescribed to you as directed. I recommend that you follow-up with the HYPNOTHERAPIST at [facility] for further evaluation and pelvic ultrasound. Return to the ER if your symptoms worsens or changes in any way. Prescriptions: Fluconazole (Nf) [Diflucan TAB] 150 mg PO ONCE #1 tablet Ibuprofen [Motrin] 800 mg PO Q8HR PRN #30 tablet PRN Reason: PAIN Referrals: [facility] [Provider Group] - 3-5 Days Time of Disposition: 11:51
[2020-04-08 10:20] LABS: Bilirubin,Urine NEG (Negative); Blood,Urine MOD (Negative); Color,Urine Yellow (Yellow); Mucus,Urine 1+ /HPF; Protein,Urine <15 mg/dL mg/dL (Negative); Urobilinogen,Urine < 2.0 mg/dL (<2.0)
== END 2020-04-08 12:04 | disposition home or self-care (01) ==
LOC: ED 08:28
DX: N76.0 Acute vaginitis (principal); B96.89 Other specified bacterial agents as the cause of diseases classified elsewhere; Z98.51 Tubal ligation status
CPT/HCPCS: 36415; 80053; 81001; 84703; 85025; 87086; 87210; 87591

== ENCOUNTER 2020-05-15 03:51 | Emergency (ER) | payer SELFPAY ==
[2020-05-15] MEDS ORDERED: ONDANSETRON 4 MG ODT TAB PO ONE (06:23)
[2020-05-15] MEDS ORDERED: metroNIDAZOLE 500 MG TAB PO ONE (06:23)
[2020-05-15] MEDS ORDERED: ACETAMINOPHEN 500 MG TAB PO ONE (06:24)
[2020-05-15 06:29] LABS: Bacteria,Urine 1+ /HPF (Negative); Bilirubin,Urine NEG (Negative); Blood,Urine SM (Negative); Color,Urine Yellow (Yellow); Mucus,Urine FEW /HPF; Protein,Urine <15 mg/dL mg/dL (Negative); Urobilinogen,Urine < 2.0 mg/dL (<2.0)
[2020-05-15 06:31] LABS: HCG Qualitative,Urine Negative (Negative)
--- NOTE | 2020-05-15 07:06 | Emergency Department Report ---
ED Female HPI - General Chief complaint: Urogenital-Female Stated complaint: LOWER BACK PAIN/ABDOMINAL PAIN/VAGINAL DISCOMFORT Source: patient Mode of arrival: Ambulatory Limitations: No Limitations - History of Present Illness Initial comments: Patient is a A0 39-year-old -[place] female with no past medical history presented to the ED with complaint of acute onset persistent dysuria, urinary frequency and urgency, vaginal discharge and low back pain for the last 2 weeks, worse the last 1 week. Patient states that in the last 1 week she has used Monistat thinking that she had a yeast infection. Patient states that in the last 2 days the vaginal discharge felt pungent and malodorous and she decided come to the ED for worsening vaginal discharge and dysuria. Patient denies fever, chills, nausea, vomiting, dyspareunia, abdominal pain, chest pain or shortness of breath, cough or sore throat and vaginal bleeding. MD Complaint: vaginal discharge, dysuria, possible STD, other (urinary urgency and frequency; low back pain) -: Sudden, week(s) (1) Location: other (vaginal) Radiation: non-radiating Severity: moderate Severity scale (0 -10): 5 Quality: cramping, burning, aching Consistency: constant Improves with: none Worsens with: urination Are you Now?: No Associated Symptoms: denies other symptoms, vaginal discharge, loss of appetite, dysuria. denies: vaginal bleeding, abdominal pain, nausea/vomiting, fever/chills, headaches, hematuria, rash, shortness of breath, syncope, weakness, other - Related Data Sexually active: Yes : 3 Para: 3 A: 0 Previous Rx's Medication Instructions Recorded Last Taken Type Fluconazole (Nf) [Diflucan TAB] 150 mg PO ONCE #1 tablet 04/08/20 Unknown Rx Ibuprofen [Motrin] 800 mg PO Q8HR PRN #30 tablet 04/08/20 Unknown Rx Fluconazole (Nf) [Diflucan TAB] 150 mg PO ONCE #1 tablet 05/15/20 Unknown Rx Ibuprofen [Motrin] 800 mg PO Q8HR PRN #24 tablet 05/15/20 Unknown Rx Ondansetron [Zofran Odt] 4 mg PO Q6HR PRN #15 tab.rapdis 05/15/20 Unknown Rx cephALEXin [Keflex] 500 mg PO Q6HR #30 capsule 05/15/20 Unknown Rx metroNIDAZOLE [Flagyl] 500 mg PO Q12HR #14 tab 05/15/20 Unknown Rx Allergies Allergy/AdvReac Type Severity Reaction Status Date / Time No Known Allergies Allergy Verified 08/07/18 11:06 ED Review of Systems ROS: Stated complaint: LOWER BACK PAIN/ABDOMINAL PAIN/VAGINAL DISCOMFORT Other details as noted in HPI Constitutional: denies: chills, fever Eyes: denies: eye pain, eye discharge, vision change ENT: denies: ear pain, throat pain Respiratory: denies: cough, shortness of breath, wheezing Cardiovascular: denies: chest pain, palpitations Endocrine: no symptoms reported Gastrointestinal: denies: abdominal pain, nausea, vomiting, diarrhea Genitourinary: urgency, dysuria, frequency, discharge Musculoskeletal: back pain (lower), arthralgia. denies: joint swelling Skin: denies: rash, lesions Neurological: denies: headache, weakness, paresthesias Psychiatric: denies: anxiety, depression Hematological/Lymphatic: denies: easy bleeding, easy bruising ED Past Medical Hx - Past Medical History Previous Medical History?: No - Surgical History Past Surgical History?: Yes Hx Appendectomy: Yes Additional Surgical History: tubal ligation & reversal - Social History Smoking Status: Never Smoker - Medications Home Medications: Home Medications Medication Instructions Recorded Confirmed Last Taken Type Fluconazole (Nf) [Diflucan TAB] 150 mg PO ONCE #1 tablet 04/08/20 Unknown Rx Ibuprofen [Motrin] 800 mg PO Q8HR PRN #30 tablet 04/08/20 Unknown Rx Fluconazole (Nf) [Diflucan TAB] 150 mg PO ONCE #1 tablet 05/15/20 Unknown Rx Ibuprofen [Motrin] 800 mg PO Q8HR PRN #24 tablet 05/15/20 Unknown Rx Ondansetron [Zofran Odt] 4 mg PO Q6HR PRN #15 tab.rapdis 05/15/20 Unknown Rx cephALEXin [Keflex] 500 mg PO Q6HR #30 capsule 05/15/20 Unknown Rx metroNIDAZOLE [Flagyl] 500 mg PO Q12HR #14 tab 05/15/20 Unknown Rx ED Physical Exam - General Limitations: No Limitations General appearance: alert, in no apparent distress - Head Head exam: Present: atraumatic, normocephalic - Eye Eye exam: Present: normal appearance, PERRL, EOMI Pupils: Present: normal accommodation - ENT ENT exam: Present: normal exam, normal orophraynx, mucous membranes moist, TM's normal bilaterally, normal external ear exam - Neck Neck exam: Present: normal inspection, full ROM - Respiratory Respiratory exam: Present: normal lung sounds bilaterally. Absent: respiratory distress, wheezes, rales, rhonchi, chest wall tenderness, accessory muscle use, decreased breath sounds - Cardiovascular Cardiovascular Exam: Present: regular rate, normal rhythm, normal heart sounds. Absent: systolic murmur, diastolic murmur, rubs, gallop - GI/Abdominal GI/Abdominal exam: Present: soft, normal bowel sounds. Absent: tenderness, rebound, hyperactive bowel sounds, hypoactive bowel sounds - Bi-manual exam: Present: other (pelvic exam deferred, patient preferred self- swab) - Extremities Exam Extremities exam: Present: normal inspection, full ROM, normal capillary refill - Back Exam Back exam: Present: normal inspection, full ROM. Absent: tenderness, CVA tenderness (R), CVA tenderness (L), muscle spasm, paraspinal tenderness, vertebral tenderness - Neurological Exam Neurological exam: Present: alert, oriented X3, CN II-XII intact, normal gait, reflexes normal - Psychiatric Psychiatric exam: Present: normal affect, normal mood - Skin Skin exam: Present: warm, dry, intact, normal color. Absent: rash ED Course Vital Signs 05/15/20 05/15/20 05:31 06:41 Temperature 98.8 F Pulse Rate 80 Respiratory 18 20 Rate Blood Pressure 110/77 O2 Sat by Pulse 100 Oximetry ED Medical Decision Making - Medical Decision Making This is a A0 39-year-old -[place] female with no past medical history presented to the ED with complaint of acute onset persistent dysuria, urinary frequency and urgency, vaginal discharge and low back pain for the last 2 weeks, worse the last 1 week. Patient states that in the last 1 week she has used Monistat thinking that she had a yeast infection. Patient states that in the last 2 days the vaginal discharge felt pungent and malodorous and she decided come to the ED for worsening vaginal discharge and dysuria. In the ED, patient is alert and oriented x3 and is not in any distress. Patient was treated for pain in the ED. Urinalysis showed significant urinary tract infection. Wet prep test results showed significant trichomonas and Gardnerella vaginalis. Patient was treated in the ED for trichomonas with Flagyl 2 g p.o. x1. Patient was discharged home on antibiotics for UTI and bacterial vaginosis. Patient was advised to ensure that her sexual partner also gets treated for the same, and also advised to observe safe sexual practices. Patient was also advised to follow-up at the [facility] department for further STD testing including HIV and syphilis. Patient was advised to return to the ED immediately if symptoms get worse. - Differential Diagnosis STD; Trichomonas; UTI; Bacterial vaginosis; Muscle spasm Critical care attestation.: If time is entered above; I have spent that time in minutes in the direct care of this critically ill patient, excluding procedure time. ED Disposition Clinical Impression: Acute urinary tract infection, Bacterial vaginosis, Trichomonas vaginalis (TV) infection Disposition: TO HOME OR SELFCARE Is pt being admited?: No Does the pt Need Aspirin: No Condition: Stable Instructions: Bacterial Vaginosis (ED), Bacterial Vaginosis, [id number], Antibiotic Medicine, Adult, [id number], Urinary Tract Infection, Adult, [id number], Trichomoniasis Additional Instructions: Take medication with food, drink plenty of fluids and follow-up with your primary care physician or [facility] for further evaluation in 3 to 5 days. Ensure that your sexual partner also gets treated for the same. Observe safe sexual practices. Return to the ED immediately if symptoms get worse. Prescriptions: Fluconazole (Nf) [Diflucan TAB] 150 mg PO ONCE #1 tablet metroNIDAZOLE [Flagyl] 500 mg PO Q12HR #14 tab cephALEXin [Keflex] 500 mg PO Q6HR #30 capsule Ibuprofen [Motrin] 800 mg PO Q8HR PRN #24 tablet PRN Reason: Pain , Severe (7-10) Ondansetron [Zofran Odt] 4 mg PO Q6HR PRN #15 tab.rapdis PRN Reason: Nausea Referrals: [facility] Depart [Outside] - 3-5 Days Forms: STI Treatment and Prevention Time of Disposition: 07:04 Print Language: HUNGARIAN
[2020-05-15 07:27] VITALS: BP 125/74
== END 2020-05-15 07:28 | disposition home or self-care (01) ==
LOC: ED 03:51
DX: N39.0 Urinary tract infection, site not specified (principal); N76.0 Acute vaginitis; A59.01 Trichomonal vulvovaginitis; Z79.899 Other long term (current) drug therapy; Z90.49 Acquired absence of other specified parts of digestive tract; Z98.51 Tubal ligation status
CPT/HCPCS: 81001; 81025; 87086; 87210; Q0162